=== PATIENT | male | born 1975 | race Caucasian/White ===

== ENCOUNTER 2017-02-09 01:44 | Emergency (ER) | payer MEDICAID, OTHER ==
[~2017-02-09] VITALS: Ht 167.6 cm; Wt 81.8 kg
[~2017-02-09 01:44] MED LIST: OLAN10TA7 PO
[2017-02-09 01:47] VITALS: Ht 167.6 cm; Wt 81.8 kg
--- NOTE | 2017-02-09 01:53 | ERA ---
ER Documentation Chief Complaint Date/Time DATE: 02/09/17 TIME: 01:53 Chief Complaint SIMI KNAPP smoked "something",tachycardic HPI The patient is a 41-year-old male, presenting to the ER because of palpitation after he smoked something that he declined to disclose. He has flight of ideas , denies headache, neck pain, chest pain with exertion of vomiting or diaphoresis, complains of palpitation, denies abdominal pain, vomiting, dysuria , diarrhea, constipation. He has history of amphetamine abuse, smokes, denies drinking. He is noncompliant with medication. He was picked up from the parking lot of a [employer] Past medical history: Schizophrenia Past surgical history: None ROS All systems reviewed and are negative except as per history of present illness. Medications Home Meds Reported Medications Trazodone Hcl* (Trazodone Hcl*) 150 Mg Tablet, 150 MG PO QHS, #30 TAB 02/09/17 Olanzapine* (Zyprexa*) 10 Mg Tablet, 10 MG PO QHS, #30 TAB 07/24/16 Discontinued Scripts Olanzapine* (Zyprexa*) 10 Mg Tablet, 10 MG PO DAILY for 7 Days, #30 TAB Prov:NIMISHA SCHAFFER MD 07/24/16 Allergies Allergies: Coded Allergies: risperidone (Unverified Allergy, Unknown, 07/24/16) PMhx/Soc History of Surgery: No Anesthesia Reaction: No Hx Neurological Disorder: No Hx Respiratory Disorders: No Hx Cardiac Disorders: No Hx Psychiatric Problems: Yes (schizo, depression) Hx Alcohol Use: No Hx Substance Use: Yes (meth yesterady (1x month)) Hx Tobacco Use: Yes Physical Exam Vitals Vital Signs Date Time Temp Pulse Resp B/P Pulse Ox O2 Delivery O2 Flow Rate FiO2 02/09/17 01:47 97.1 134 18 188/105 96 Physical Exam Const: No acute distress. Very talkative Head: Atraumatic. Eyes: Normal Conjunctiva. ENT: Normal External Ears, Nose and Mouth. Neck: Full range of motion. No meningismus. Resp: Clear to auscultation bilaterally. Cardio: Regular but tachycardic Abd: Soft, non distended, normal bowel sounds, non tender. Skin: No petechiae or rashes. Back: No midline or flank tenderness. Ext: No cyanosis, or edema. Neur: Awake and alert. No focal deficit Psych: Agitation, psychotic Result Diagram: 02/09/17 0200 02/09/17 0200 Results 24 hrs Laboratory Tests Test 02/09/17 02:00 White Blood Count 18.810^3/ul Red Blood Count 5.1910^6/ul Hemoglobin 15.1g/dl Hematocrit 46.4% Mean Corpuscular Volume 89.4fl Mean Corpuscular Hemoglobin 29.1pg Mean Corpuscular Hemoglobin Concent 32.5g/dl Red Cell Distribution Width 13.8% Platelet Count 45036^3/UL Mean Platelet Volume 10.4fl Neutrophils % 84.4% Lymphocytes % 7.8% Monocytes % 7.2% Eosinophils % 0.0% Basophils % 0.2% Nucleated Red Blood Cells % 0.0/100WBC Neutrophils # 15.810^3/ul Lymphocytes # 1.510^3/ul Monocytes # 1.410^3/ul Eosinophils # 0.010^3/ul Basophils # 0.010^3/ul Nucleated Red Blood Cells # 0.010^3/ul Urine Color YELLOW Urine Clarity SLIGHTLY CLOUDY Urine pH 5.0 Urine Specific [place] 1.017 Urine Ketones NEGATIVEmg/dL Urine Nitrite NEGATIVEmg/dL Urine Bilirubin NEGATIVEmg/dL Urine Urobilinogen NEGATIVEmg/dL Urine Leukocyte Esterase NEGATIVELeu/ul Urine Microscopic RBC 0/HPF Urine Microscopic WBC 1/HPF Urine Bacteria FEW/HPF Urine Mucus FEW/HPF Urine Hemoglobin NEGATIVEmg/dL Urine Glucose NEGATIVEmg/dL Urine Total Protein 1+mg/dl Sodium Level 139mmol/L Potassium Level 4.1mmol/L Chloride Level 101mmol/L Carbon Dioxide Level 24mmol/L Anion Gap 18 Blood Urea Nitrogen 17mg/dl Creatinine 1.07mg/dl Glucose Level 129mg/dl Calcium Level 10.3mg/dl Total Bilirubin 0.2mg/dl Direct Bilirubin 0.00mg/dl Indirect Bilirubin 0.2mg/dl Aspartate Amino Transf (AST/SGOT) 63IU/L Alanine Aminotransferase (ALT/SGPT) 57IU/L Alkaline Phosphatase 68IU/L Troponin I < 0.012ng/ml Total Protein 9.6g/dl Albumin 5.6g/dl Globulin 4.00g/dl Albumin/Globulin Ratio 1.40 Salicylates Level < 1.0mg/dl Urine Opiates Screen Negative Acetaminophen Level < 10.0ug/ml Urine Barbiturates Negative Urine Amphetamines Screen Positive Urine Benzodiazepines Screen Negative Urine Cocaine Screen Negative Urine Cannabinoids Negative Ethyl Alcohol Level < 10.0mg/dl Current Medications Medications (Trade) Dose Ordered Sig/Margarito Route PRN Reason Start Time Stop Time Status Last Admin Dose Admin Sodium Chloride (NS) 1,000 ml @ 1,000 mls/hr Q1H ONCE IV 02/09/17 02:00 02/09/17 02:59 DC 02/09/17 02:10 Olanzapine (Zyprexa) 10 mg ONCE ONCE IM 02/09/17 02:30 02/09/17 02:31 DC 02/09/17 02:33 Clonidine (Catapres) 0.2 mg ONCE ONCE PO 02/09/17 04:00 02/09/17 04:01 02/09/17 03:45 Procedures/MDM EKG: Read by emergency physician Rate/Rhythm: Sinus tachycardia 133 beats/min QRS, ST, T-waves: No ST elevation, no T inversion Impression: Abnormal EKG [place] [id number] Radiology Main Line: [phone] DIAGNOSTIC IMAGING REPORT Patient: STEPH GARCIA : 1975 Age: 41 Sex: M MR #: [id number] DOS: 02/09/17 0000 Ordering MD: NIMISHA SCHAFFER MD Location: E/R Room/Bed: PROCEDURE: CHEST - 1 VIEW CLINICAL INDICATION: 41-year-old male with shortness of breath. TECHNIQUE: A single frontal AP upright portable view of the chest was performed. The images were reviewed on a PACS workstation. COMPARISON: Chest x-ray July 24, 2016. FINDINGS: The cardiomediastinal silhouette has a normal appearance. There is minimal linear left basilar subsegmental atelectasis. There is no evidence for an infiltrate. There is no evidence for congestive heart failure. There is no evidence for pneumothorax. The osseous structures are intact. IMPRESSION: Minimal linear left basilar subsegmental atelectasis. .Gabriel Caldwell MD, MD Date Time Electronically viewed and signed by .Gabriel Caldwell MD, MD on 02/09/2017 02:59 .M/ CC: NIMISHA SCHAFFER MD MEDICAL MAKING DECISION: The patient is 41-year-old male, presenting with acute amphetamine abuse, acute psychosis, acute dehydration. He was treated with 1 L normal saline for acute dehydration, Zyprexa 10 mg IM and clonidine 0.2 mg with good response. The differential diagnoses considered include but are not limited to drug- induced psychosis, psychosis, decompensated psychiatric illness, anxiety attack , panic attack, pneumonia, cystitis. The leukocytosis is most likely due to acute stress and/or margination Departure Diagnosis: Primary Impression: Acute psychosis Additional Impressions: Amphetamine abuse Leukocytosis Condition: Stable Comments He is awaiting for telepsychiatrist evaluation The patient's blood pressure was elevated (>120/80) but appears stable without evidence of hypertension emergency or urgency. The patient was counseled about the risks of hypertension and urged to pursue outpatient monitoring and therapy within a week with their primary care physician. NIMISHA SCHAFFER MD Feb 09, 2017 01:53
[2017-02-09] MEDS ORDERED: SOD CHLORIDE 0.9% 1,000 ML IV ONE (02:00)
[2017-02-09 02:22] LABS: ADD SCAN DIFF NO
[2017-02-09] MEDS ORDERED: OLANZAPINE 10 MG VIAL IM ONE (02:30)
[2017-02-09 02:32] LABS: BASOPHILS % 0.2 % (0.0-2.0); HEMATOCRIT 46.4 % (42.0-52.0); HEMOGLOBIN 15.1 g/dl (14.0-18.0); LYMPHOCYTES # 1.5 10^3/ul (0.8-2.9); LYMPHOCYTES % 7.8 % (15.0-51.0); MEAN CORPUSCULAR HEMOGLOBIN 29.1 pg (29.0-33.0); MEAN CORPUSCULAR HGB CONC 32.5 g/dl (32.0-37.0); MEAN CORPUSCULAR VOLUME 89.4 fl (82.0-101.0); MEAN PLATELET VOLUME 10.4 fl (7.4-10.4); MONOCYTE # 1.4 10^3/ul (0.3-0.9); MONOCYTES % 7.2 % (0.0-11.0); NEUTROPHIL # 15.8 10^3/ul (1.6-7.5); NEUTROPHILS % 84.4 % (39.0-77.0); PLATELET COUNT 311 10^3/UL (140-415); RED BLOOD COUNT 5.19 10^6/ul (4.70-6.10); RED CELL DISTRIBUTION WIDTH 13.8 % (11.5-14.5); WHITE BLOOD COUNT 18.8 10^3/ul (4.8-10.8)
[2017-02-09 02:49] LABS: ADD UMIC YES; UR ASCORBIC ACID 40 mg/dL (NEGATIVE); UR BILIRUBIN (Dip) NEGATIVE (NEGATIVE); UR BLOOD (Dip) NEGATIVE (NEGATIVE); UR CLARITY SLIGHTLY CLOUDY (CLEAR); UR COLOR YELLOW (YELLOW); UR GLUCOSE (Dip) NEGATIVE (NEGATIVE); UR KETONES (Dip) NEGATIVE (NEGATIVE); UR LEUKOCYTE ESTERASE (Dip) NEGATIVE Leu/ul (NEGATIVE); UR MUCUS FEW /HPF (NONE SEEN); UR NITRITE (Dip) NEGATIVE (NEGATIVE); UR RBC 0 /HPF (0-5); UR SPECIFIC GRAVITY (Dip) 1.017 (1.003-1.030); UR TOTAL PROTEIN (Dip) 1+ mg/dl (NEGATIVE); UR UROBILINOGEN (Dip) NEGATIVE (NEGATIVE)
[2017-02-09 02:51] LABS: ALANINE AMINOTRANSFERASE 57 IU/L (13-69); ALBUMIN 5.6 g/dl (3.3-4.9); ALKALINE PHOSPHATASE 68 IU/L (42-121); ANION GAP 18 (8-16); ASPARTATE AMINO TRANSFERASE 63 IU/L (15-46); BILIRUBIN,INDIRECT 0.2 mg/dl (0-1.1); BILIRUBIN,TOTAL 0.2 mg/dl (0.2-1.3); BLOOD UREA NITROGEN 17 mg/dl (7-20); CALCIUM 10.3 mg/dl (8.4-10.2); CARBON DIOXIDE 24 mmol/L (21-31); CHLORIDE 101 mmol/L (97-110); CREATININE 1.07 mg/dl (0.61-1.24); GLUCOSE 129 mg/dl (70-220); POTASSIUM 4.1 mmol/L (3.5-5.1); SODIUM 139 mmol/L (135-144); TOTAL PROTEIN 9.6 g/dl (6.1-8.1)
[2017-02-09 02:56] LABS: UR BACTERIA FEW /HPF (NONE SEEN)
[2017-02-09 02:57] LABS: ACETAMINOPHEN < 10.0 ug/ml (10.0-30.0); ETHANOL < 10.0 mg/dl; SALICYLATE < 1.0 mg/dl (5.0-30.0)
--- NOTE | 2017-02-09 02:59 | RADRPT ---
PROCEDURE: CHEST - 1 VIEW CLINICAL INDICATION: 41-year-old male with shortness of breath. TECHNIQUE: A single frontal AP upright portable view of the chest was performed. The images were reviewed on a PACS workstation. COMPARISON: Chest x-ray July 24, 2016. FINDINGS: The cardiomediastinal silhouette has a normal appearance. There is minimal linear left basilar subse gmental atelectasis. There is no evidence for an infiltrate. There is no evidence for congestive he art failure. There is no evidence for pneumothorax. The osseous structures are intact. IMPRESSION: Minimal linear left basilar subsegmental atelectasis. .Gabriel Caldwell MD, MD Date Time Electronically viewed and signed by .Gabriel Caldwell MD, on 02/09/2017 02:59 .Brenda
[2017-02-09] MEDS ORDERED: TRAZ150T65 PO (03:31)
[2017-02-09 03:51] LABS: BARBITURATES Negative (NEGATIVE); BENZODIAZEPINES Negative (NEGATIVE); CANNABINOIDS Negative (NEGATIVE); COCAINE Negative (NEGATIVE); OPIATES Negative (NEGATIVE)
--- NOTE | 2017-02-09 05:12 | PSY ---
Date/Time of Note Date/Time of Note DATE: 02/09/17 TIME: 05:12 Psychiatric Subjective Eval Consent Pt consented to telemedicine: Yes Subjective Evaluation Patient location: emergency Chief Complaint: SIMI KNAPP smoked "something",tachycardic Medical history Problems Medical Problems: (1) Acute psychosis Status: Acute (2) Amphetamine abuse Status: Acute (3) Amphetamine abuse Status: Acute (4) Leukocytosis Status: Acute (5) Suicidal ideation Status: Acute Allergies: Coded Allergies: risperidone (Unverified Allergy, Unknown, 07/24/16) Psychiatric Objective Eval Mental Status Examination: Laboratory Results Laboratory Tests Test 02/09/17 02:00 White Blood Count 18.810^3/ul Red Blood Count 5.1910^6/ul Hemoglobin 15.1g/dl Hematocrit 46.4% Mean Corpuscular Volume 89.4fl Mean Corpuscular Hemoglobin 29.1pg Mean Corpuscular Hemoglobin Concent 32.5g/dl Red Cell Distribution Width 13.8% Platelet Count 21919^3/UL Mean Platelet Volume 10.4fl Neutrophils % 84.4% Lymphocytes % 7.8% Monocytes % 7.2% Eosinophils % 0.0% Basophils % 0.2% Nucleated Red Blood Cells % 0.0/100WBC Neutrophils # 15.810^3/ul Lymphocytes # 1.510^3/ul Monocytes # 1.410^3/ul Eosinophils # 0.010^3/ul Basophils # 0.010^3/ul Nucleated Red Blood Cells # 0.010^3/ul Urine Color YELLOW Urine Clarity SLIGHTLY CLOUDY Urine pH 5.0 Urine Specific [place] 1.017 Urine Ketones NEGATIVEmg/dL Urine Nitrite NEGATIVEmg/dL Urine Bilirubin NEGATIVEmg/dL Urine Urobilinogen NEGATIVEmg/dL Urine Leukocyte Esterase NEGATIVELeu/ul Urine Microscopic RBC 0/HPF Urine Microscopic WBC 1/HPF Urine Bacteria FEW/HPF Urine Mucus FEW/HPF Urine Hemoglobin NEGATIVEmg/dL Urine Glucose NEGATIVEmg/dL Urine Total Protein 1+mg/dl Sodium Level 139mmol/L Potassium Level 4.1mmol/L Chloride Level 101mmol/L Carbon Dioxide Level 24mmol/L Anion Gap 18 Blood Urea Nitrogen 17mg/dl Creatinine 1.07mg/dl Glucose Level 129mg/dl Calcium Level 10.3mg/dl Total Bilirubin 0.2mg/dl Direct Bilirubin 0.00mg/dl Indirect Bilirubin 0.2mg/dl Aspartate Amino Transf (AST/SGOT) 63IU/L Alanine Aminotransferase (ALT/SGPT) 57IU/L Alkaline Phosphatase 68IU/L Troponin I < 0.012ng/ml Total Protein 9.6g/dl Albumin 5.6g/dl Globulin 4.00g/dl Albumin/Globulin Ratio 1.40 Salicylates Level < 1.0mg/dl Urine Opiates Screen Negative Acetaminophen Level < 10.0ug/ml Urine Barbiturates Negative Urine Amphetamines Screen Positive Urine Benzodiazepines Screen Negative Urine Cocaine Screen Negative Urine Cannabinoids Negative Ethyl Alcohol Level < 10.0mg/dl Assessment Additional comments: IDENTIFYING INFORMATION: 41 year old Male patient who is currently located at the hospital and for whom psychiatric consultation was requested. SOURCES OF INFORMATION: The patient who appears to be unreliable and the medical records; the nursing staff. CHIEF COMPLAINT: "schizophrenia". HISTORY OF PRESENT ILLNESS: The patient was interviewed via telemedicine in the presence of and under the supervision of nursing staff of the hospital. The consent to conducting this interview via telemedicine was obtained by the nursing staff at the hospital. VANESSA Hung reports that the patient was found at a parking lot, repeating the same thing, not making sense. Pt admitted to not taking his meds lately due to side effects. Received 20 mg IM Zyprexa while in the ER, because he was talking excessively. Is not on a hold. The patient is very difficult to interview because of acute psychosis. He is not able to cooperate with most questions providing irrational answers unrelated to the question asked. The patient reports that he has been diagnosed with depression which makes him suicidal and he tries to commit suicide by slicing his wrists. He reports that the all the bitches that are suicidal are depressed. He reports that he has been diagnosed with schizophrenia. He reports that he does not want to slice anybody's neck without having been asked. Denies having AH, then reports that he sees voices. He keeps talking about his psychologist when asked many different questions. The patient reports drinking alcohol occasionally. The patient denies using alcohol heavily or regularly. The patient denies using any other substances. PAST MEDICAL HISTORY: Tuberculosis, STDs, then says he is healthy (but patient is not reliable). CURRENT MEDICATIONS: none (noncompliant)- zyprexa 10 mg po qday, trazodone 150 mg po qday. ALLERGIES TO MEDICATIONS: risperidone, haldol, wellbutrin. SOCIAL HISTORY: Unable to assess as the patient was not able to cooperate with the interview at this time. LABORATORY TESTS: CBC with white blood cells of 18.8. CMP with a calcium of 10.3, AST 63, albumin 5.6. UDS positive for amphetamines, alcohol was not detected. REVIEW OF SYSTEMS: Unable to assess as the patient was not able to cooperate with the interview at this time. MENTAL STATUS EXAMINATION: General Appearance and Behavior: Agitated, appears to be responding to internal stimuli, uncooperative with most of the interview, distant with the current interviewer, makes fair eye contact, poorly groomed, increased psychomotor activity, no abnormal movements noted. Speech: increased rate, regular rhythm, decreased latency, high volume, increased amount. Flow of thought: tangential, illogical, not goal-directed. Content of thought: + auditory hallucinations, + paranoid delusions, positive for visual hallucinations, + suicidal ideation; positive for homicidal ideation. Mood: "fine". Affect: excessively pleasant, euphoric, decreased range of reactivity. Attention: normal based on the interview. Insight: poor. Judgment: poor. Memory: normal based on the interview. Sensorium: alert and oriented to person, unable to assess further. ASSESSMENT: The patient's presentation and history are consistent with the diagnosis of unspecified psychotic disorder, r/o stimulant use disorder. Pt presents with psychosis in the context of medication noncompliance and possible stimulant use. Shock I: unspecified psychotic disorder, r/o stimulant use disorder. Shock II: Deferred. Shock III: see PMH. Shock IV: social stressors. Shock V: GAF: 10. PLAN: - Medication management: Would start zyprexa 10 mg po qday. Would start Zyprexa 10 mg IM PRN agitation [id number]; 3rd dose may be administered no earlier than 4 hours after 2nd dose); do not exceed 30 mg/24 hours; do not administer with IM benzodiazepines Would start diphenhydramine 50 mg IM PRN severe agitation q4 hours. Will defer to the inpatient psychiatry team for other medication changes. - Labs: No other laboratory tests are needed at this time. - Psychotherapy: Provided supportive psychotherapy and psychoeducation. - Disposition: Would recommend involuntary admission to the inpatient psychiatric unit given the severity of the patient's psychiatric condition and the fact that the patient is an imminent danger to self and/or others so long as the patient has been cleared medically for admission to psychiatry. Inpatient psychiatric admission is at this time the least restrictive environment where the patient can receive the psychiatric care that is needed. Would place on suicide precautions. The patient fulfills criteria for being placed on an involuntary hold for being a danger to self or others due to a psychiatric disorder. Of note, the patient is in agreement with the above plan. Discussed about the above plan with Dr. Villatoro. VICYK MARIO MD Feb 09, 2017 05:12
[2017-02-09] MEDS ORDERED: LORAZEPAM 2 MG INJ IV ONE (05:30)
[2017-02-10 10:13] VITALS: BP 140/89; PULSE 99; RESP 18; TEMP 97.9
== END 2017-02-10 10:15 ==
LOC: E/R 01:44
DX: F23 Brief psychotic disorder (principal); F15.159 Other stimulant abuse with stimulant-induced psychotic disorder, unspecified; D72.829 Elevated white blood cell count, unspecified; R40.2142 Coma scale, eyes open, spontaneous, at arrival to emergency department; R40.2252 Coma scale, best verbal response, oriented, at arrival to emergency department; R40.2362 Coma scale, best motor response, obeys commands, at arrival to emergency department; F17.210 Nicotine dependence, cigarettes, uncomplicated
CPT/HCPCS: 36415; 71010; 80053; 80306; 80307; 81001; 84484; 85025; 93005; 96372; 96374; J2060; J7030; Z7502; Z7610

== ENCOUNTER 2018-05-19 23:33 | Emergency (ER) | END 2018-05-20 10:15 ==